=== PATIENT | female | born 1955 | race Caucasian/White ===

== ENCOUNTER 2019-07-04 12:49 | Inpatient (IN) ==
[2019-07-04] MEDS ORDERED: 0.9 % Sodium Chloride 1,000 ML IVC ONE (13:20)
--- NOTE | 2019-07-04 13:25 | Emergency Department Note ---
Disposition Clinical Impression: Fall, History of dementia, History of Parkinson's disease Disposition: Admitted As Inpatient Condition: Fair Forms: ED Satisfaction Letter Time of Disposition: 15:46 Fall HPI - General Chief Complaint: ED Fall Stated Complaint: fall Time Seen by Provider: 07/04/19 13:02 Source: patient, EMS Nursing Notes Reviewed: Yes Vital Signs Reviewed: Yes - History of Present Illness HPI Narrative: Patient is a 64-year-old female with significant history of advanced dementia and Parkinson's who presents with concerns of a fall in her bathroom today. Per EMS, the patient was found down in the bathtub. The mechanism of fall is unclear secondary to the patient's known medical history. She does state that she recalls this fall, however is unable to recall any details of this. She denies any symptoms following the fall such as headache, nausea, vomiting, neck pain, chest pain, abdominal pain, extremity pain. The remainder of the history is limited today to the patient's medical history. - Related Data Home Medications Medication Instructions Recorded Confirmed Cholecalciferol (Vitamin D3) 2,000 unit PO DAILY 01/04/18 01/06/18 [Vitamin D] Famotidine [Heartburn Prevention] 20 mg PO BID 01/04/18 01/06/18 Fluticasone Propionate [Flonase 1 spr NS DAILY 01/04/18 01/06/18 Allergy Relief] Meloxicam [Mobic] 15 mg PO DAILY 01/04/18 01/06/18 Sodium Chloride/Aloe Nasal Gel 1 appl NS 5XD PRN 01/04/18 01/06/18 [[place] Saline Nasal Gel] Trazodone HCl 150 mg PO HS 01/04/18 01/06/18 Vit A/C/E AC/Znox/Cupric Oxide 1 each PO DAILY 01/04/18 01/06/18 [Eye Vitamin-Minerals Tablet] Vit C/E/Zn/Coppr/Lutein/Zeaxan 1 tab PO DAILY 01/04/18 01/06/18 [Preservision Areds 2 Softgel] Allergies Allergy/AdvReac Type Severity Reaction Status Date / Time Donepezil Allergy Dizziness Verified 01/04/18 14:09 Review of Systems: REVIEW OF SYSTEMS: Constitutional: No F/C, No excessive fatigue Eye: No acute visual changes HENT: No sore throat, No rhinorrhea Resp: No SOB, No cough Cardio: No palpitations, No chest pain GI: No abdominal pain, No nausea, No vomiting, No constipation, No diarrhea, No melena or hematochezia : No dysuria, No hematuria Musculoskeletal: No new joint swelling, No back pain Neuro: No isolated numbness or weakness, No headaches Skin: No skin yellowing/jaundice, No pruritus Fall PMH - Past Medical History Medical history: Reports: non-contributory, arthritis, dementia, GERD Surgical history: Reports: cholecystectomy, hysterectomy Psychiatric history: Reports: anxiety, depression - Social History Smoking Status: Never smoker Alcohol use: Reports: none Drug use: Reports: none Physical Exam PHYSICAL EXAM: Constitutional: Stated Age HENT: NC/AT, Mucous membranes dry Eyes: No scleral icterus, No photophobia, EOMI Neck: No nuchal rigidity, Supple, Trachea midline Cardiac: Regular rate and rhythm, S1 and S2 normal, no S3, S4, no murmurs gallops or rubs Thorax & Lungs: Clear to auscultation bilaterally, no wheezes, crackles or rhonchi, No chest tenderness Abdomen: Soft, non-tender, non-distended, no rebound or guarding Skin: Warm, dry, pink, No mottling Extremities: No deformities Musculoskeletal: Normal tone Neurologic: Alert and oriented 1, sensory and motor strength fully intact in all extremities, no aphasia or dysarthria Psychiatric: appropriately oriented for baseline - General Limitations: no limitations General appearance: alert, in no apparent distress Course Vital Signs Temperature 98.2 F 07/04/19 12:56 Pulse Rate 77 07/04/19 12:56 Respiratory Rate 16 07/04/19 12:56 Blood Pressure 123/55 07/04/19 12:56 O2 Sat by Pulse Oximetry 96 07/04/19 12:56 Temperature 98.2 F 07/04/19 12:56 Pulse Rate 76 07/04/19 15:26 Respiratory Rate 16 07/04/19 15:26 Blood Pressure 109/87 07/04/19 15:26 O2 Sat by Pulse Oximetry 97 07/04/19 15:26 Oxygen Delivery Oxygen Delivery Room Air Fall - [facility] Narrative Medical decision making narrative: Patient is a 64-year-old female with history of advanced dementia and Par kinson's who presents for concerns of a fall. On physical exam, the patient was alert and oriented to person and place only which appears to be her baseline. Mucous membranes are dry, she otherwise had no facial trauma, no spinal tenderness, no other concerning features of trauma on exam. CT imaging of the head and cervical spine were unremarkable as well as labs. The significant other who is the power of insurance defense attorney did arrive to the emergency department and expressed to social work that he is concerned with her staying at home and does not feel he is able to adequately care for her and is requesting placement at this time. The patient will be hospitalized pending skilled placement. - Medical Records Medical records reviewed: Yes I reviewed the patient's medical records. - Lab Data Lab results reviewed: Yes I reviewed the patient's lab results. Result diagrams: 07/04/19 14:30 07/04/19 14:30 Lab Results 07/04/19 07/04/19 Range/Units 14:30 14:30 WBC 11.8 H (4.3-11.1) K/mcL RBC 4.60 (3.82-4.97) M/mcL Hgb 14.4 (11.5-15.4) g/dL Hct 42.6 (35.3-44.9) % MCV 92.6 (83.0-100.0) fL MCH 31.3 (28.0-33.3) pg MCHC 33.8 (31.6-35.5) g/dL RDW 13.0 (11.5-14.5) % Plt Count 244 (140-400) K/mcL MPV 9.2 L (9.4-12.4) fL Immature Gran % 0.3 (0-4) % Seg Neutrophils % 89.8 % Lymphocytes % 5.4 % Monocytes % 4.1 % Eosinophils % 0.1 % Basophils % 0.3 % Neutrophils # 10.6 H (1.6-8.9) K/mcL Lymphocytes # 0.6 (0.6-4.6) K/mcL Monocytes # 0.5 (0.0-1.3) K/mcL Eosinophils # 0.0 (0.0-0.6) K/mcL Basophils # 0.0 (0.0-0.2) K/mcL Sodium 140 (136-145) mEq/L Potassium 3.7 (3.5-5.1) mEq/L Chloride 103 (98-107) mEq/L Carbon Dioxide 28 (23-29) mEq/L BUN 19 (8-23) mg/dL Creatinine 0.97 (0.60-1.20) mg/dL Est GFR ( Amer) > 60 (> 60) Est GFR (Non-Af Amer) 58 L (> 60) BUN/Creatinine Ratio 20 (6-26) Glucose 123 H (70-105) mg/dL Calculated Osmolality 294 (280-300) Calcium 9.9 (8.6-10.3) mg/dL - Radiology Data Radiology results reviewed: Yes I reviewed the patient's radiology results. - EKG Data EKG attestation: Yes I reviewed and interpreted this EKG. EKG shows normal: sinus rhythm Rate: normal Rhythm: NSR [place]/QRS: normal
[2019-07-04 14:51] LABS: Basophils % 0.3 %; Eosinophils % 0.1 %; Hematocrit 42.6 % (35.3-44.9); Hemoglobin 14.4 g/dL (11.5-15.4); Immature Granulocytes % 0.3 % (0-4); Lymphocytes # 0.6 K/mcL (0.6-4.6); Lymphocytes % 5.4 %; Mean Corpuscular HGB Conc 33.8 g/dL (31.6-35.5); Mean Corpuscular Hemoglobin 31.3 pg (28.0-33.3); Mean Corpuscular Volume 92.6 fL (83.0-100.0); Mean Platelet Volume 9.2 fL (9.4-12.4); Monocytes # 0.5 K/mcL (0.0-1.3); Monocytes % 4.1 %; Neutrophils # 10.6 K/mcL (1.6-8.9); Platelet Count 244 K/mcL (140-400); Segmented Neutrophils % 89.8 %; White Blood Count 11.8 K/mcL (4.3-11.1)
[2019-07-04] MEDS ORDERED: *HR* LORazepam 2 MG/ML VIAL IVP ONE (15:05)
[2019-07-04 15:19] LABS: BUN/Creatinine Ratio 20 (6-26); Blood Urea Nitrogen 19 mg/dL (8-23); Calcium 9.9 mg/dL (8.6-10.3); Carbon Dioxide 28 mEq/L (23-29); Chloride 103 mEq/L (98-107); Glucose 123 mg/dL (70-105); Osmolality,Calculated 294 (280-300); Potassium 3.7 mEq/L (3.5-5.1); Sodium 140 mEq/L (136-145); eGFR For African Americans > 60 (> 60); eGFR For Non-African Americans 58 (> 60)
--- NOTE | 2019-07-04 16:16 | Internal Med History&Physical ---
Date of Encounter: 07/04/19 Time of Encounter: 16:13 Internal Medicine - H&P: HPI Chief complaint: Fall and injury Admitted From: Home Plans for Post Hospital Care: Transfer Custodial Facility History of present illness: Ms. Hernandez is a 64 year old female with past medical history of arthritis, gastroesophageal reflux disease, Parkinson disease, presents to the emergency department through EMS status post fall. There was a concern that she follow up to date in her bilateral. Per EMS team patient was found down in the bilateral me about that. However, the mechanism of the fall was unclear such as whether i t was a syncope versus mechanical fall. Patient has history of baseline dementia and Parkinson's disease and she does not recollect episode of her falling. Patient does remember that she fell earlier today however she did not really collect mechanism of how she fell. However, she reports that she did not hit her head. Patient reports of tremor and generalized weakness.Patient denied any headache, nausea, vomiting, chest pain, palpitation, tingling, and numbness. Upon presentation to the emergency department patient's vitals were stable and within normal limit. Patient had a CBC done which was within acceptable limits. Recent CMP was within acceptable limits as well. Vitamin B-12, folate, and TSH ordered which is pending at this time. Urine analysis pending at this time. Patient had a CT head was done in the emergency room which was without any acute intracranial process. Patient CT cervical spine was without any acute process. EKG was done which was normal sinus rhythm at 81 bpm. EKG had nonspecific T- wave abnormality which was compared with previous EKG in 2018 which was unchanged. Past Med Surg Social Fam HX - Past Medical History Medical history: non-contributory, arthritis, dementia, GERD Additional medical history: Parkinson's, Insomnia, Vit D insufficiency, Psoriasis Psychiatric history: anxiety, depression - Past Surgical History Surgical History: cholecystectomy, hysterectomy - Social History Smoking Status: Never smoker Smokeless Tobacco Status: No Alcohol use: none Drug use: none - Family History Father History Unknown: Yes Mother History Unknown: Yes Internal Medicine - H&P: Meds Cholecalciferol (Vitamin D3) [Vitamin D] 2,000 unit PO DAILY 01/04/18 [History] Famotidine [Heartburn Prevention] 20 mg PO BID 01/04/18 [History] Fluticasone Propionate [Flonase Allergy Relief] 1 spr NS DAILY 01/04/18 [History] Meloxicam [Mobic] 15 mg PO DAILY 01/04/18 [History] Sodium Chloride/Aloe Nasal Gel [[place] Saline Nasal Gel] 1 appl NS 5XD PRN 01/04/18 [History] Trazodone HCl 150 mg PO HS 01/04/18 [History] Vit A/C/E AC/Znox/Cupric Oxide [Eye Vitamin-Minerals Tablet] 1 each PO DAILY 01/04/18 [History] Vit C/E/Zn/Coppr/Lutein/Zeaxan [Preservision Areds 2 Softgel] 1 tab PO DAILY 01/04/18 [History] Allergy/AdvReac Type Severity Reaction Status Date / Time Donepezil Allergy Dizziness Verified 01/04/18 14:09 All Systems PM: A 10-system review of systems was performed and is negative for pertinent findings except as documented above in the HPI. - Constitutional Vitals: Temp Pulse Resp BP Pulse Ox 98.2 F 76 16 109/87 97 07/04/19 12:56 07/04/19 15:26 07/04/19 15:26 07/04/19 15:26 07/04/19 15:26 General appearance: Present: A&O X 2 Exam: General: A & O 2 , In acute distress HENNT: PERRLA. Head atraumatic and makes supple Eyes: No scleral icterus CVS S1 and S2 regular, no murmur RS: Clear to air entry bilaterally, no wheeze, no crackles Abdomen: Soft and nontender. Bowel sounds normal 4 Extremities: No cyanosis, clubbing, and edema Neurology: Cranial 2 through 12 normal. Motor strength 3-4/5 bilaterally. Sensation intact,. baseline tremor Skin: Dry, no rash noted Internal Med - H&P Results - Labs CBC & Chem 7: 07/04/19 14:30 07/04/19 14:30 Labs: Short CBC 07/04/19 Range/Units 14:30 WBC 11.8 H (4.3-11.1) K/mcL Hgb 14.4 (11.5-15.4) g/dL Hct 42.6 (35.3-44.9) % Plt Count 244 (140-400) K/mcL Neutrophils # 10.6 H (1.6-8.9) K/mcL BMP 07/04/19 14:30 Sodium 140 Potassium 3.7 Chloride 103 Carbon Dioxide 28 BUN 19 Creatinine 0.97 Glucose 123 H Calcium 9.9 - Impressions ITS Impressions Cervical Spine CT 07/04/19 13:20 IMPRESSION: No acute abnormality of the cervical spine. D/ / Allison Mccarty MD / Allison Mccarty MD Interpreting Provider: Allison Mccarty MD Head CT 07/04/19 13:20 IMPRESSION: No acute intracranial abnormality. D/ / Allison Mccarty MD / Allison Mccarty MD Interpreting Provider: Allison Mccarty MD - Assessment and Plan (1) Fall Current Visit: Yes Status: Acute Assessment and plan: Patient is a 64-year-old female with baseline history of ?Parkinson disease and dementia. Patient is currently not on any medication for Parkinson's disease. Patient was brought to the emergency department by EMS status post fall in her bilateral in the bite. Mechanism of fall is unknown at this time. Lab work in the ED was within the acceptable range. EKG was within normal limits. CT head and CT cervical spine was negative. - We will admit patient as inpatient. - We will get echocardiogram - Fall precautions - Telemetry - TSH, folate, and vitamin B12 ordered - Neurology on consult will appreciate neurology input. - We will consult PT/OT and possible placement on senior care facility on discharge. Qualifiers: Encounter type: initial encounter Qualified Code(s): W19.XXXA - Unspecified fall, initial encounter (2) History of Parkinson's disease Current Visit: Yes Status: Acute Assessment and plan: Patient reports that she has a history of Parkinson's disease. However, on medication review recent is not on any medication for Parkinson's disease. CT head was within normal limit. Patient has a baseline tremor on exam. We will place neurology on consult. (3) History of dementia Current Visit: Yes Status: Acute Assessment and plan: Patient is currently not on any medication for dementia. Patient has allergy to Aricept. We will place neurological consult. We will continue to monitor. (4) GERD (gastroesophageal reflux disease) Current Visit: Yes Status: Acute Assessment and plan: Continue home Pepcid Qualifiers: Esophagitis presence: esophagitis presence not specified Qualified Code(s): K21.9 - Gastro-esophageal reflux disease without esophagitis (5) DVT prophylaxis Current Visit: Yes Status: Acute Assessment and plan: Subcutaneous heparin - Time Spent With Patient Total time spent is greater than 50% in coordination of care (as documented) at patient's floor/unit and/or counseling patient: 25 - 35 minutes
[2019-07-04] MEDS ORDERED: *HR* Promethazine 25 MG/ML VIAL IVP PRN (16:45)
[2019-07-04] MEDS ORDERED: Ondansetron 4 MG/2 ML VIAL IVP PRN (16:45)
[2019-07-04] MEDS ORDERED: Naloxone 0.4 MG/ML INJ IVP PRN (16:45)
[2019-07-04 17:30] LABS: Thyroid Stimulating Hormone 1.003 mcIU/mL (0.340-5.600)
[2019-07-04 18:17] LABS: Folate > 22.3 ng/mL (3.0-16.0); Vitamin B12 837 pg/mL (250-1100)
[2019-07-04] MEDS: 0.9 % Sodium Chloride 1,000 ML IVC SCH (21:59)
[2019-07-04] MEDS: Famotidine 20 MG TABLET PO SCH (22:00)
[2019-07-04] MEDS: *HR* Heparin 5,000 UNIT/ML VIAL SQ SCH (22:00)
[2019-07-04] MEDS: traZODone 50 MG TABLET PO SCH (22:00)
[2019-07-05 03:37] LABS: Basophils % 0.5 %; Eosinophils # 0.1 K/mcL (0.0-0.6); Eosinophils % 0.8 %; Hematocrit 36.9 % (35.3-44.9); Immature Granulocytes % 0.3 % (0-4); Lymphocytes # 1.8 K/mcL (0.6-4.6); Lymphocytes % 23.3 %; Mean Corpuscular HGB Conc 33.6 g/dL (31.6-35.5); Mean Corpuscular Volume 95.3 fL (83.0-100.0); Mean Platelet Volume 9.3 fL (9.4-12.4); Monocytes # 0.4 K/mcL (0.0-1.3); Monocytes % 5.7 %; Neutrophils # 5.4 K/mcL (1.6-8.9); Platelet Count 228 K/mcL (140-400); Red Blood Count 3.87 M/mcL (3.82-4.97); Red Cell Distribution Width 13.2 % (11.5-14.5); Segmented Neutrophils % 69.4 %; White Blood Count 7.7 K/mcL (4.3-11.1)
[2019-07-05 03:51] LABS: Hemoglobin 12.4 g/dL (11.5-15.4)
[2019-07-05 03:54] LABS: BUN/Creatinine Ratio 21 (6-26); Blood Urea Nitrogen 15 mg/dL (8-23); Carbon Dioxide 24 mEq/L (23-29); Chloride 109 mEq/L (98-107); Potassium 3.2 mEq/L (3.5-5.1); Sodium 140 mEq/L (136-145); eGFR For African Americans > 60 (> 60); eGFR For Non-African Americans > 60 (> 60)
[2019-07-05 03:55] LABS: Calcium 8.7 mg/dL (8.6-10.3); Glucose 99 mg/dL (70-105); Osmolality,Calculated 291 (280-300)
[2019-07-05] MEDS: *HR* Heparin 5,000 UNIT/ML VIAL SQ SCH ×2 (05:53→17:59)
[2019-07-05] MEDS: Fluticasone Propionate Nasal 50 MCG/SPRAY BOTTLE NS SCH (08:33)
[2019-07-05] MEDS: Famotidine 20 MG TABLET PO SCH ×2 (08:33→20:40)
[2019-07-05] MEDS: 0.9 % Sodium Chloride 1,000 ML IVC SCH (08:33)
--- NOTE | 2019-07-05 11:01 | Internal Med Progress Note ---
Hospitalist Progress Note - Encounter Date of Encounter: 07/05/19 Time of Encounter: 10:59 - Subjective Interval History: Pt was seen and examined at bedside. Pt is alert and follows command. Patient denies any acute issues and concerns. - Exam Vitals: Temp Pulse Resp BP Pulse Ox 98.0 F 59 14 138/73 95 07/05/19 07:32 07/05/19 07:32 07/05/19 07:32 07/05/19 07:32 07/05/19 07:32 Exam: General: A & O 2 , In acute distress HENNT: PERRLA. Head atraumatic and makes supple Eyes: No scleral icterus CVS S1 and S2 regular, no murmur RS: Clear to air entry bilaterally, no wheeze, no crackles Abdomen: Soft and nontender. Bowel sounds normal 4 Extremities: No cyanosis, clubbing, and edema Neurology: Cranial II-XII normal. Motor strength 3-4/5 bilaterally. Sensation intact,. baseline tremor - Assessment and Plan (1) Fall Current Visit: Yes Status: Acute Assessment and Plan: Patient is a 64-year-old female with baseline history of Parkinson disease and dementia. Hospitalized due to fall. CT head was negative. Neurology consult placed. Patient's TSH, vitamin B12, folic are within normal limit. We will get echocardiogram today. We will get physical therapy and occupational therapy on admission today. Most likely will be discharged to assisted facility. (2) History of Parkinson's disease Current Visit: Yes Status: Acute Assessment and Plan: Since home medication for Parkinson's disease resume today.. (3) History of dementia Current Visit: Yes Status: Acute Assessment and Plan: Home medications resumed today.. (4) GERD (gastroesophageal reflux disease) Current Visit: Yes Status: Acute Assessment and Plan: Continue home Pepcid (5) DVT prophylaxis Current Visit: Yes Status: Acute Assessment and Plan: Subcutaneous heparin - Time Spent with Patient Total time spent is greater than 50% in coordination of care (as documented) at patient's floor/unit and/or counseling patient: 25 - 35 minutes Plan of Care Discussed with: patient Internal Medicine: Result - Labs CBC & Chem 7: 07/05/19 03:02 07/05/19 03:02 Labs: Short CBC 07/04/19 07/05/19 Range/Units 14:30 03:02 WBC 11.8 H 7.7 (4.3-11.1) K/mcL Hgb 14.4 12.4 D (11.5-15.4) g/dL Hct 42.6 36.9 (35.3-44.9) % Plt Count 244 228 (140-400) K/mcL Neutrophils # 10.6 H 5.4 (1.6-8.9) K/mcL BMP 07/04/19 07/05/19 14:30 03:02 Sodium 140 140 Potassium 3.7 3.2 L Chloride 103 109 H Carbon Dioxide 28 24 BUN 19 15 Creatinine 0.97 0.70 Glucose 123 H 99 Calcium 9.9 8.7 - Impressions Impressions Cervical Spine CT 07/04/19 13:20 IMPRESSION: No acute abnormality of the cervical spine. D/ / Allison Mccarty MD / Allison Mccarty MD Interpreting Provider: Allison Mccarty MD Head CT 07/04/19 13:20 IMPRESSION: No acute intracranial abnormality. D/ / Allison Mccarty MD / Allison Mccarty MD Interpreting Provider: Allison Mccarty MD Consult Discharge Plan - Plan Referrals: Alva Mahoney CNP [Advanced Practice Nurse] - (1) Fall Qualifiers: Encounter type: initial encounter Qualified Code(s): W19.XXXA - Unspecified fall, initial encounter (4) GERD (gastroesophageal reflux disease) Qualifiers: Esophagitis presence: esophagitis presence not specified Qualified Code(s): K21.9 - Gastro-esophageal reflux disease without esophagitis
--- NOTE | 2019-07-05 11:34 | Neurology - Consult Note ---
<Stephen Flores J - Last Filed: 07/05/19 16:37> Date of Encounter: 07/05/19 Time of Encounter: 11:32 Assessment and Plan (1) Fall Current Visit: Yes Status: Acute History of Parkinson's disease Neurology consulted for further recommendations regarding Parkinson's Patient presents to [facility] S/P fall without syncope/loss of consciousness or head trauma She reports that she was sitting on the edge of her chair and fell out and then was unable to stand unassisted Echocardiogram completed and pending At time of my assessment she is at her baseline with delayed cognition, difficulty with word finding, bradykinesia, resting tremor, rigidity in all 4 extremities without any other focal or lateralizing findings concerning for an acute central neurological event Her fall was most likely 2/2 to her Parkinsonism We will increase the frequency of her dose of Sinemet from 25/100 TID to 25/100 QID She is known to [facility] and has been established with Dr. Montero. Last visit was 03/2019 She has a f/u scheduled in two weeks with Dr. Montero; Will discuss how she has tolerated increase in frequency or sinemet at that time Qualifiers: Encounter type: initial encounter Qualified Code(s): W19.XXXA - Unspecified fall, initial encounter History of Present Illness Chief complaint: FALLS HPI: Ms. Hernandez is a 64 year old female with a PMH of Parkinson's arthritis and dementia who presented to [facility] ED s/p fall at home. She reports that she was sitting on the edge of her chair and fell off and was unable to get herself off of the floor. She denies any head/neck trauma or loss of consciousness but notes that d/t weakness and muscle rigidity with her Parkinson's she was unable to stand. She denies any neuro sx including facial droop, visual disturbances, focal or lateralizing weakness or sensory loss, she denies any chest pain, palpitations or shortness of breath. She reports that she follows with Dr. Montero for Parkinsons and that she has an upcoming f/u in late June. B-12, folate and TSH were within range. CT head and C spine unremarkable. At the time of my assessment she was resting in bed and weeping. She notes distress in regards to her decline in independence. She denies any worsening of symptoms since admission but does admit that she is still weaker than baseline. Past Med Surg Social Fam HX - Past Medical History Medical history: non-contributory, arthritis, dementia, GERD Additional medical history: Parkinson's, Insomnia, Vit D insufficiency, Psoriasis Psychiatric history: anxiety, depression - Past Surgical History Surgical History: cholecystectomy, hysterectomy - Social History Smoking Status: Never smoker Smokeless Tobacco Status: No Alcohol use: none Drug use: none Medications and Allergies Carbidopa/Levodopa [Carbidopa-Levodopa 25-100 Tab] 1 tab PO TID 07/04/19 [H istory] Cholecalciferol (D-3) [Vitamin D] 2,000 unit PO DAILY 07/04/19 [History] Escitalopram [Lexapro] 10 mg PO DAILY 07/04/19 [History] Famotidine [Pepcid] 20 mg PO BID 07/04/19 [History] Memantine HCl 10 mg PO BID 07/04/19 [History] Multivitamin [Daily Multiple Vitamin] 1 tab PO DAILY 07/04/19 [History] Oxybutynin [Ditropan] 5 mg PO BID 07/04/19 [History] Trazodone HCl 150 mg PO HS PRN 07/04/19 [History] Vit C/E/Zn/Coppr/Lutein/Zeaxan [Preservision Areds 2 Softgel] 1 cap PO DAILY 07/04/19 [History] Allergy/AdvReac Type Severity Reaction Status Date / Time Donepezil Allergy Dizziness Verified 01/04/18 14:09 All Systems: The remainder of the systems were reviewed and are negative Review of Systems: REVIEW OF SYSTEMS GENERAL: Negative for any nausea, vomiting, fevers, chills, or weight loss, fatigue NEUROLOGIC: Negative for any blurry vision, blind spots, double vision, facial asymmetry, dysphagia, dysarthria, hemiparesis, hemisensory deficits, vertigo, ataxia, seizures, paralysis, tingling, numbness, unilateral weakness or numbness/tingling Positive falls, bilateral leg weakness, limb rigidity secondary Parkinson's HEENT: Negative for any head trauma, neck trauma, neck stiffness CARDIAC: Negative for any chest pain, dyspnea, peripheral edema. PULMONARY: Negative for any shortness of breath, wheezing GASTROINTESTINAL: Negative for any abdominal pain, nausea, vomiting, bright red blood per rectum, melena. GENITOURINARY: Negative for any dysuria, hematuria, incontinence. ENDOCRINE: Thyroid trouble, heat/cold intolerance, excessive sweating, MUSCULOSKELETAL: Positive chronic limb rigidity, decreased activity tolerance secondary to Parkinson's The remainder of the review of systems reviewed and found to be negative Physical Examination - Vital Signs Vital Signs: Initial Vital Signs Temp Pulse Resp BP Pulse Ox 98.2 F 77 16 123/55 96 07/04/19 12:56 07/04/19 12:56 07/04/19 12:56 07/04/19 12:56 07/04/19 12:56 - Exam Exam: Examination: General Examination: *CONSTITUTIONAL: Alert and oriented x3, anxious and weeping *GENERAL APPEARANCE OF PATIENT generally ill appearing obese elderly female *EYES: pupils equal, round, reactive to light and accommodation, conjunctiva clear without masses or ulcerations, fundi normal. *CARDIOVASCULAR: no peripheral edema, distal temperature normal, dorsalis pedis pulses normal. Refer to vital signs * MUSCULOSKELETAL: *GAIT AND STATION:: Deferred *ASSESSMENT OF MUSCLE STRENGTH IN THE UPPER AND LOWER EXTREMITIES bilateral deltoid, bicep, tricep, environmental educator strength, hip flexors ,anterior tibialis, dorsoflexion of the foot 5/5 *MUSCLE TONE IN THE UPPER AND LOWER EXTREMITIES patient has a unilateral resting tremor in the right hand and mild no known head tremor as well as masked facies. Cogwheeling noted bilaterally in the upper extremities she is somewhat rigid and bilateral lower extremitIES WELL Neurological: *ORIENTATION to person, situation, time and place *LANGUAGE AND FUNCTION no significant aphasia or dysarthia was noted. *ATTENTION AND CONCENTRATION are normal *LANGUAGE FUNCTION patient has been having difficulty with language function with delayed and interrupted speech pattern as well as difficulty with word finding *FUND OF KNOWLEDGE aware of current events, past history, vocabulary *MENTAL attention span and concentration abnormal and she requires frequent reorientation *CN II optic fundi were normal, no papilledema noted. *CN III,IV, PERRLA extraocular eye movements were full, no nystagmus and no ptosis noted. *CN V shows normal sensation and jaw opens symmetrically. *CN VII shows normal facial movement symmetrically, upper and lower bilat erally. *CN VIII shows no significant hearing loss on exam *CN IX-X palate elevated symmetrically *CN XI normal strength in the sternocleidomastoid muscles, symmetrical shoulder shrugging. *CN XII tongue protruded in the midline, with normal strength and movement. *SENSORY EXAMINATION light touch intact *REFLEXES: deep tendon reflexes were normal and symmetrical , grade 1/4 diffusely, no pathological reflexes were noted. *CEREBELLAR TESTING dysmetria in b/l finger to nose and [id number] *PAIN LEVEL 0/10 Results - Laboratory Findings CBC and BMP: 07/05/19 03:02 07/05/19 03:02 Abnormal lab findings: Abnormal lab results WBC 11.8 K/mcL (4.3-11.1) H 07/04/19 14:30 MPV 9.3 fL (9.4-12.4) L 07/05/19 03:02 Neutrophils # 10.6 K/mcL (1.6-8.9) H 07/04/19 14:30 Potassium 3.2 mEq/L (3.5-5.1) L 07/05/19 03:02 Chloride 109 mEq/L (98-107) H 07/05/19 03:02 Est GFR (Non-Af Amer) 58 (> 60) L 07/04/19 14:30 Glucose 123 mg/dL (70-105) H 07/04/19 14:30 Folate > 22.3 ng/mL (3.0-16.0) H 07/04/19 16:30 - Diagnostic Findings Additional findings: CT/CT head/brain wo con IMPRESSION: No acute intracranial abnormality. Consult Discharge Plan - Plan Referrals: Alva Mahoney, SCOOP DRIVER [Advanced Practice Nurse] - <Jarett Canela - Last Filed: 07/05/19 18:35> Date of Encounter: 07/05/19 Assessment and Plan (1) Fall Current Visit: Yes Status: Acute I have personally performed a zrls-[id number] assessment of the patient and have reviewed the PA/GAMING CAGE WORKER note. My impressions are as follows: Case was discussed with Stephen. I agree with his assessment as stated above. Individuals with Parkinson's disease generally experience some element of postural instability which predisposes them to falls. She is very anxious which is something that ultimately need to be addressed. It could possibly be worsening her tremulousn ess. In regard may increase her Sinemet to 4 times a day dosing. Dementia may also be contributing to her anxious mood. I will have her follow up with Dr. Montero for further recommendations regarding management of Parkinson's disease after discharge. Qualifiers: Encounter type: initial encounter Qualified Code(s): W19.XXXA - Unspecified fall, initial encounter History of Present Illness HPI: Chart was reviewed, patient was seen and examined independently. Case was discussed with the SCOOP DRIVER. I agree with his interpretation of the history of present illness as stated above. Patient is known to Dr. Montero for Parkinson's disease. Patient at this time seems to be very anxious. She is awake and wilner rt, however seems distraught. She stutters profusely. She is able to follow commands however. She is not a good historian. All Systems: The remainder of the systems were reviewed and are negative Review of Systems: The balance of the systems review is negative. Physical Examination - Vital Signs Vital Signs: Initial Vital Signs Temp Pulse Resp BP Pulse Ox 98.2 F 77 16 123/55 96 07/04/19 12:56 07/04/19 12:56 07/04/19 12:56 07/04/19 12:56 07/04/19 12:56 - Exam Exam: I shivI agree with the neurologic examination as documented above.e personally performed a [id number] assessment of the patient and have reviewed the PA/GAMING CAGE WORKER note. My impressions are as follows: Results - Laboratory Findings CBC and BMP: 07/05/19 03:02 07/05/19 03:02 Abnormal lab findings: Abnormal lab results WBC 11.8 K/mcL (4.3-11.1) H 07/04/19 14:30 MPV 9.3 fL (9.4-12.4) L 07/05/19 03:02 Neutrophils # 10.6 K/mcL (1.6-8.9) H 07/04/19 14:30 Potassium 3.2 mEq/L (3.5-5.1) L 07/05/19 03:02 Chloride 109 mEq/L (98-107) H 07/05/19 03:02 Est GFR (Non-Af Amer) 58 (> 60) L 07/04/19 14:30 Glucose 123 mg/dL (70-105) H 07/04/19 14:30 Folate > 22.3 ng/mL (3.0-16.0) H 07/04/19 16:30
[2019-07-05] MEDS ORDERED: Carbidopa/Levodopa 25/100 TABLET PO SCH (15:00)
--- NOTE | 2019-07-05 17:41 | Electrocardiograph Report ---
[place] [id number] Test Date: 2019-07-04 Pat Name: Cadence Hernandez Department: [id number] Room: 3A12 Gender: F Coding Consultant: : [id number] Requested By: [id number] Order Number: [id number] Reading MD: Megan Reeves Measurements Intervals [place] Rate: 81 P: 51 NE: 179 QRS: 4 QRSD: 63 T: 177 QT: 459 QTc: 533 Interpretive Statements Sinus rhythm Low voltage, precordial leads Baseline artifact Prolonged QT interval Electronically Signed On 07-05-2019 17:39:48 EDT by Megan Reeves
[2019-07-05] MEDS: Carbidopa/Levodopa 25/100 TABLET PO SCH ×2 (17:59→20:40)
[2019-07-05 18:26] LABS: Bilirubin,Urine Negative (Negative); Blood,Urine Negative (Negative); Clarity,Urine Clear (Clear); Color,Urine Yellow (Yellow); Glucose,Urine (UA) Normal (Normal); Ketones,Urine Trace mg/dL (Negative); Leukocyte Esterase,Urine Small (Negative); Nitrite,Urine Negative (Negative); Protein,Urine Negative (Neg-Trace); Specific Gravity,Urine 1.013 (1.010-1.025); Urobilinogen,Urine Normal (Normal)
[2019-07-05 18:29] LABS: Bacteria,Urine None Seen per hpf (None-Few); Hyaline Casts,Urine None Seen per lpf (None-Few); RBC,Urine 0-3 per hpf (0-3); Squamous Epithelial Cell,Urine Moderate per lpf (None-Few)
[2019-07-05] MEDS: traZODone 50 MG TABLET PO SCH (20:39)
[2019-07-06] MEDS: Nystatin POWDER 30 GM BOTTLE TP SCH ×3 (01:24→21:58)
[2019-07-06 02:51] LABS: BUN/Creatinine Ratio 12 (6-26); Blood Urea Nitrogen 9 mg/dL (8-23); Calcium 8.4 mg/dL (8.6-10.3); Carbon Dioxide 22 mEq/L (23-29); Chloride 110 mEq/L (98-107); Glucose 97 mg/dL (70-105); Osmolality,Calculated 291 (280-300); Potassium 3.1 mEq/L (3.5-5.1); Sodium 141 mEq/L (136-145); eGFR For African Americans > 60 (> 60); eGFR For Non-African Americans > 60 (> 60)
[2019-07-06] MEDS: *HR* Heparin 5,000 UNIT/ML VIAL SQ SCH ×2 (05:30→16:36)
[2019-07-06] MEDS: Carbidopa/Levodopa 25/100 TABLET PO SCH ×4 (10:03→21:58)
[2019-07-06] MEDS: Famotidine 20 MG TABLET PO SCH ×2 (10:03→21:58)
[2019-07-06] MEDS: Fluticasone Propionate Nasal 50 MCG/SPRAY BOTTLE NS SCH (10:04)
--- NOTE | 2019-07-06 10:12 | Internal Med Progress Note ---
Hospitalist Progress Note - Encounter Date of Encounter: 07/06/19 Time of Encounter: 10:09 - Subjective Interval History: Pt was seen and examined at bedside this morning. Patient still complaining of sluggishness and weakness. She denied any fever, chills, nausea, vomiting, abdominal pain, and diarrhea. She denies any chest pain, and palpitation. - Exam Vitals: Temp Pulse Resp BP Pulse Ox 98.2 F 80 16 136/83 96 07/06/19 06:21 07/06/19 06:21 07/06/19 06:21 07/06/19 06:21 07/06/19 06:21 Exam: General: A & O 2 , In acute distress HENNT: PERRLA. Head atraumatic and makes supple Eyes: No scleral icterus CVS S1 and S2 regular, no murmur RS: Clear to air entry bilaterally, no wheeze, no crackles Abdomen: Soft and nontender. Bowel sounds normal 4 Extremities: No cyanosis, clubbing, and edema Neurology: Cranial II-XII normal. Motor strength 3-4/5 bilaterally. Sensation intact,. baseline tremor - Assessment and Plan (1) Parkinson disease Current Visit: Yes Status: Acute Assessment and Plan: Pt presents to the emergency department with fall. Patient could not be collected the mechanism of fall at the presentation. Patient has a history of Parkinson's disease which is not well controlled and resulting in frequent falls and weakness. On exam patient has a sluggishness and bradykinesia. Patient also had a baseline tremor as well. Patient is currently on Sinemet. Neurology was consulted. Neurologic increase daily frequency of Sinmet same dosage. His medication regimen adjusted. Physical therapy and occupational therapy consulted which recommended alf facility placement. We will continue to monitor. (2) Fall Current Visit: Yes Status: Acute Assessment and Plan: Likely due to uncontrolled Parkinson's disease. CT head at the presentation was negative. Neurology consulted and patient's Parkinson's disease medications were adjusted. PT and OT on consult. (3) History of dementia Current Visit: Yes Status: Acute Assessment and Plan: Continue memantine. (4) GERD (gastroesophageal reflux disease) Current Visit: Yes Status: Acute Assessment and Plan: Continue home Pepcid (5) DVT prophylaxis Current Visit: Yes Status: Acute Assessment and Plan: Subcutaneous heparin - Time Spent with Patient Total time spent is greater than 50% in coordination of care (as documented) at patient's floor/unit and/or counseling patient: 25 - 35 minutes Plan of Care Discussed with: patient Internal Medicine: Result - Labs CBC & Chem 7: 07/05/19 03:02 07/06/19 02:19 Labs: BMP 07/06/19 02:19 Sodium 141 Potassium 3.1 L Chloride 110 H Carbon Dioxide 22 L BUN 9 Creatinine 0.77 Glucose 97 Calcium 8.4 L Urine 07/05/19 Range/Units 18:00 Urine Color Yellow (Yellow) Urine Clarity Clear (Clear) Urine pH 7.0 (5.0-8.0) pH Units Ur Specific [place] 1.013 (1.010-1.025) Urine Protein Negative (Neg-Trace) mg/dL Urine Glucose (UA) Normal (Normal) mg/dL - Impressions Impressions Echocardiogram 07/04/19 16:54 Impressions: LVEF 60-65%. Normal LV chamber size, wall thickness and function. Normal left ventricular diastolic function. Normal right ventricular structure and function. No evidence of pulmonary hypertension. No significant valvular dysfunction. Left Ventricular Wall Motion: Rest Echo Findings All wall segments showed normal motion. Findings: Study Quality * Technically sub-optimal due to poor echocardiographic windows. ECG Findings * Normal sinus rhythm. Left Ventricle * LVEF 60-65%. * Normal LV chamber size, wall thickness and function. * Normal left ventricular diastolic function. Right Ventricle * Normal right ventricular structure and function. Left Atrium * Normal left atrial size. Right Atrium * Normal right atrial size. Interatrial Septum * Interatrial septum not well evaluated. Aortic Valve * Trileaflet aortic valve. * No aortic regurgitation. * No aortic stenosis. Mitral Valve * Normal mitral valve structure and function. * No mitral stenosis. * No mitral regurgitation. Tricuspid Valve * Normal tricuspid valve structure and function. * Trace tricuspid regurgitation. * No evidence of pulmonary hypertension. Pulmonic Valve * Normal pulmonic valve structure and function. * No pulmonic regurgitation. Aorta * Normally sized aortic root. Pericardium * The pericardium appears normal. IVC * The IVC is not well evaluated. Pulmonary Artery * Normal visualized portions of the main pulmonary artery. Consult Discharge Plan - Plan Referrals: Alva Mahoney, LICENSED LOAN OFFICER ASSISTANT [Advanced Practice Nurse] - __ (2) Fall Qualifiers: Encounter type: initial encounter Qualified Code(s): W19.XXXA - Unspecified fall, initial encounter (4) GERD (gastroesophageal reflux disease) Qualifiers: Esophagitis presence: esophagitis presence not specified Qualified Code(s): K21.9 - Gastro-esophageal reflux disease without esophagitis
--- NOTE | 2019-07-06 10:44 | Neurology Progress Note ---
<Stephen Flores - Last Filed: 07/06/19 10:41> Date of Encounter: 07/06/19 Time of Encounter: 10:41 Assessment and Plan (1) Fall Current Visit: Yes Status: Acute Seen in follow-up S/P fall Follows most likely 2/2 postural instability with Parkinson's Patient noting increasing weakness and rigidity as well as balance difficulty over the last couple of weeks Sinemet increased to 4 times a day She reports feeling much better today however, she is still somewhat anxious. This may be due to dementia. She has follow-up scheduled for Dr. Montero in 2 weeks. During the follow-up visit she can discuss medication management Recommending PT/OT and social work msw consultation; the patient has inquired about assisted living to provide her with a better quality of life and assistance as well as provide transportation for close follow-ups for prog ressing Parkinson's Neurology will sign off at this time please call should any urgent needs arise. Thank you for consulting [facility] Qualifiers: Encounter type: initial encounter Qualified Code(s): W19.XXXA - Unspecified fall, initial encounter Subjective Principal diagnosis: Falls with Parkinson's Interval history: The patient is seen and examined at bedside today. She is sitting up in the chair and notes that she feels much better today than comparison to admission. Clinically she is stable without any acute neurological deficits developing overnight. I discussed increasing her Sinemet to 25/100 4 times a day from the 3 times a day dosing she was previously taken. I reminded her of her follow-up with Dr. Montero in 2 weeks. The patient denies any further questions. Objective - Constitutional Vitals: Temp Pulse Resp BP Pulse Ox 98.2 F 80 16 136/83 96 07/06/19 06:21 07/06/19 06:21 07/06/19 06:21 07/06/19 06:21 07/06/19 06:21 Exam: Examination: General Examination: *CONSTITUTIONAL: Alert and oriented x3, anxious and weeping *GENERAL APPEARANCE OF PATIENT generally ill appearing obese elderly female *EYES: pupils equal, round, reactive to light and accommodation, conjunctiva clear without masses or ulcerations, fundi normal. *CARDIOVASCULAR: no peripheral edema, distal temperature normal, dorsalis pedis pulses normal. Refer to vital signs * MUSCULOSKELETAL: *GAIT AND STATION:: Bradykinesia and shuffled gait *ASSESSMENT OF MUSCLE STRENGTH IN THE UPPER AND LOWER EXTREMITIES bilateral deltoid, bicep, tricep, short order fry cook strength, hip flexors ,anterior tibialis, dorsoflexion of the foot 5/5 *MUSCLE TONE IN THE UPPER AND LOWER EXTREMITIES patient has a unilateral resting tremor in the right hand and mild no known head tremor as well as masked facies. Cogwheeling noted bilaterally in the upper extremities she is somewhat rigid and bilateral lower extremitIES WELL Neurological: *ORIENTATION to person, situation, time and place *LANGUAGE AND FUNCTION no significant aphasia or dysarthia was noted. *ATTENTION AND CONCENTRATION are normal *LANGUAGE FUNCTION patient has been having difficulty with language function with delayed and interrupted speech pattern as well as difficulty with word finding *FUND OF KNOWLEDGE aware of current events, past history, vocabulary *MENTAL attention span and concentration abnormal and she requires frequent reorientation *CN II optic fundi were normal, no papilledema noted. *CN III,IV, PERRLA extraocular eye movements were full, no nystagmus and no ptosis noted. *CN V shows normal sensation and jaw opens symmetrically. *CN VII shows normal facial movement symmetrically, upper and lower bilaterally. *CN VIII shows no significant hearing loss on exam *CN IX-X palate elevated symmetrically *CN XI normal strength in the sternocleidomastoid muscles, symmetrical shoulder shrugging. *CN XII tongue protruded in the midline, with normal strength and movement. *SENSORY EXAMINATION light touch intact *REFLEXES: deep tendon reflexes were normal and symmetrical , grade 1/4 diffusely, no pathological reflexes were noted. *CEREBELLAR TESTING dysmetria in b/l finger to nose and [id number] *PAIN LEVEL 0/10 Results - Laboratory Findings CBC and BMP: 07/05/19 03:02 07/06/19 02:19 Abnormal lab findings: Abnormal lab results WBC 11.8 K/mcL (4.3-11.1) H 07/04/19 14:30 MPV 9.3 fL (9.4-12.4) L 07/05/19 03:02 Neutrophils # 10.6 K/mcL (1.6-8.9) H 07/04/19 14:30 Potassium 3.1 mEq/L (3.5-5.1) L 07/06/19 02:19 Chloride 110 mEq/L (98-107) H 07/06/19 02:19 Carbon Dioxide 22 mEq/L (23-29) L 07/06/19 02:19 Est GFR (Non-Af Amer) 58 (> 60) L 07/04/19 14:30 Glucose 123 mg/dL (70-105) H 07/04/19 14:30 Calcium 8.4 mg/dL (8.6-10.3) L 07/06/19 02:19 Folate > 22.3 ng/mL (3.0-16.0) H 07/04/19 16:30 Urine Ketones Trace mg/dL (Negative) H 07/05/19 18:00 Ur Leukocyte Esterase Small (Negative) H 07/05/19 18:00 Urine Microscopic WBC 5-15 per hpf (0-3) H 07/05/19 18:00 Ur Squamous Epith Cells Moderate per lpf (None-Few) H 07/05/19 18:00 Ur Culture Indicated? YES (NO) A 07/05/19 18:00 Consult Discharge Plan - Plan Referrals: Alva Mahoney CNP [Advanced Practice Nurse] - <Jarett Canela - Last Filed: 07/06/19 15:50> Date of Encounter: 07/06/19 Assessment and Plan (1) Fall Current Visit: Yes Status: Acute I have personally performed a [id number] assessment of the patient and have reviewed the PA/CAD DETAILER note. My impressions are as follows: Chart was reviewed, patient was seen and examined independently. Case was discussed with the CRYSTAL GROWING TECHNICIAN. I agree with his assessment and plan as stated above. Patient seems improved today. We will recommend that she continue on Sinemet 25/100 4 times a day dosing and follow-up with Dr. Kylah tong office and another 2 weeks. We will reevaluate your request. Qualifiers: Encounter type: initial encounter Qualified Code(s): W19.XXXA - Unspecified fall, initial encounter Subjective Interval history: Chart was reviewed, patient was seen and examined. Case was discussed with the CRYSTAL GROWING TECHNICIAN. I agree with his assessment of the subjective history as documented above. Objective - Constitutional Vitals: Temp Pulse Resp BP Pulse Ox 98.4 F 58 18 135/69 98 07/06/19 14:59 07/06/19 14:59 07/06/19 14:59 07/06/19 14:59 07/06/19 14:59 Exam: I have personally performed a [id number]-td-lksh assessment of the patient and have reviewed the PA/CAD DETAILER note. My impressions are as follows: I agree with the neurologic examination is documented above. Results - Laboratory Findings CBC and BMP: 07/05/19 03:02 07/06/19 02:19 Abnormal lab findings: Abnormal lab results WBC 11.8 K/mcL (4.3-11.1) H 07/04/19 14:30 MPV 9.3 fL (9.4-12.4) L 07/05/19 03:02 Neutrophils # 10.6 K/mcL (1.6-8.9) H 07/04/19 14:30 Potassium 3.1 mEq/L (3.5-5.1) L 07/06/19 02:19 Chloride 110 mEq/L (98-107) H 07/06/19 02:19 Carbon Dioxide 22 mEq/L (23-29) L 07/06/19 02:19 Est GFR (Non-Af Amer) 58 (> 60) L 07/04/19 14:30 Glucose 123 mg/dL (70-105) H 07/04/19 14:30 Calcium 8.4 mg/dL (8.6-10.3) L 07/06/19 02:19 Folate > 22.3 ng/mL (3.0-16.0) H 07/04/19 16:30 Urine Ketones Trace mg/dL (Negative) H 07/05/19 18:00 Ur Leukocyte Esterase Small (Negative) H 07/05/19 18:00 Urine Microscopic WBC 5-15 per hpf (0-3) H 07/05/19 18:00 Ur Squamous Epith Cells Moderate per lpf (None-Few) H 07/05/19 18:00 Ur Culture Indicated? YES (NO) A 07/05/19 18:00
[2019-07-06 14:31] LABS: Adenovirus F 40/41 PCR Not detected (Not detect); Astrovirus PCR Not detected (Not detect); C.difficile Toxin A/B Gene PCR Not detected (Not detect); Campylobacter by PCR Not detected (Not detect); Cryptosporidium by PCR Not detected (Not detect); Cyclospora cayetanensis PCR Not detected (Not detect); E. coli O157 by PCR Not detected (Not detect); Entamoeba histolytica PCR Not detected (Not detect); Enteroaggregative E.coli(EAEC) Not detected (Not detect); Enteropathogenic E.coli(EPEC) Not detected (Not detect); Enterotoxigenic E.coli (ETEC) Not detected (Not detect); Giardia lamblia PCR Not detected (Not detect); Norovirus GI/GII PCR Not detected (Not detect); Plesiomonas shigelloides PCR Not detected (Not detect); Rotavirus A PCR Not detected (Not detect); Salmonella PCR Not detected (Not detect); Sapovirus PCR Not detected (Not detect); Shig/EnteroinvasiveE coli EIEC Not detected (Not detect); Shigalike tox-prod E coli STEC Not detected (Not detect); Vibrio PCR Not detected (Not detect); Vibrio cholerae PCR Not detected (Not detect); Yersinia enterocolitica PCR Not detected (Not detect)
[2019-07-06] MEDS: traZODone 50 MG TABLET PO SCH (21:58)
[2019-07-07 06:01] LABS: BUN/Creatinine Ratio 13 (6-26); Blood Urea Nitrogen 10 mg/dL (8-23); Calcium 9.3 mg/dL (8.6-10.3); Carbon Dioxide 19 mEq/L (23-29); Chloride 108 mEq/L (98-107); Glucose 98 mg/dL (70-105); Osmolality,Calculated 289 (280-300); Potassium 3.5 mEq/L (3.5-5.1); Sodium 140 mEq/L (136-145); eGFR For African Americans > 60 (> 60); eGFR For Non-African Americans > 60 (> 60)
[2019-07-07] MEDS: *HR* Heparin 5,000 UNIT/ML VIAL SQ SCH ×2 (06:13→18:34)
--- NOTE | 2019-07-07 11:49 | Internal Med Progress Note ---
Hospitalist Progress Note - Encounter Date of Encounter: 07/07/19 Time of Encounter: 11:46 - Subjective Interval History: Patient was seen and examined at bedside today. Patient denies any acute issues and concerns at this time. She continues to have baseline tremor, and weakness. Patient continues to have sluggishness to respond and bradykinesia which is likely due to her Parkinson's disease not well controlled. Patient reports that he has been noting progressively worsening weakness and rigidity and balance difficulty for past few weeks prior to her frequent falls. Apart from this, she denies any acute issues and concerns at this time. - Exam Vitals: Temp Pulse Resp BP Pulse Ox 98.3 F 56 15 134/78 97 07/07/19 06:38 07/07/19 06:38 07/07/19 06:38 07/07/19 06:38 07/07/19 08:15 Exam: General: A & O 2 , sluggish to respond. HENNT: PERRLA. Head atraumatic and makes supple Eyes: No scleral icterus CVS S1 and S2 regular, no murmur RS: Clear to air entry bilaterally, no wheeze, no crackles Abdomen: Soft and nontender. Bowel sounds normal 4 Extremities: No cyanosis, clubbing, and edema Neurology: Cranial II-XII normal. Motor strength 3-4/5 bilaterally. Sensation intact,. baseline tremor - Assessment and Plan (1) Parkinson disease Current Visit: Yes Status: Acute Assessment and Plan: Pt presents to the emergency department with complaint of fall. Patient has a history of Parkinson's disease and dementia. Patient reports that 2 weeks prior to the arrival to the emergency department she has been noticing increasing weakness, rigidity, bradykinesia, and tremors. Patient has a physical therapy and occupational therapy evaluation done while in the hospital. Patient will need shelter facility placement. SW is on consult. Neurology change her Parkinson's medication. We will continue to follow patient for improvement. (2) Fall Current Visit: Yes Status: Acute Assessment and Plan: Likely due to uncontrolled Parkinson's disease. CT head at the presentation was negative. Neurology consulted and patient's Parkinson's disease medications were adjusted. PT and OT on consult. (3) History of dementia Current Visit: Yes Status: Acute Assessment and Plan: Continue memantine. (4) GERD (gastroesophageal reflux disease) Current Visit: Yes Status: Acute Assessment and Plan: Continue home Pepcid (5) DVT prophylaxis Current Visit: Yes Status: Acute Assessment and Plan: Subcutaneous heparin - Time Spent with Patient Total time spent is greater than 50% in coordination of care (as documented) at patient's floor/unit and/or counseling patient: 25 - 35 minutes Plan of Care Discussed with: patient Internal Medicine: Result - Labs CBC & Chem 7: 07/05/19 03:02 07/07/19 05:00 Labs: BMP 07/07/19 05:00 Sodium 140 Potassium 3.5 Chloride 108 H Carbon Dioxide 19 L BUN 10 Creatinine 0.78 Glucose 98 Calcium 9.3 Consult Discharge Plan - Plan Referrals: Alva Mahoney CNP [Advanced Practice Nurse] - (2) Fall Qualifiers: Encounter type: initial encounter Qualified Code(s): W19.XXXA - Unspecified fall, initial encounter (4) GERD (gastroesophageal reflux disease) Qualifiers: Esophagitis presence: esophagitis presence not specified Qualified Code(s): K21.9 - Gastro-esophageal reflux disease without esophagitis
[2019-07-07] MEDS: Carbidopa/Levodopa 25/100 TABLET PO SCH ×4 (12:22→21:39)
[2019-07-07] MEDS: Nystatin POWDER 30 GM BOTTLE TP SCH ×2 (12:38→21:40)
[2019-07-07] MEDS: Famotidine 20 MG TABLET PO SCH ×2 (12:39→21:39)
[2019-07-07] MEDS: Fluticasone Propionate Nasal 50 MCG/SPRAY BOTTLE NS SCH (12:39)
[2019-07-07] MEDS: traZODone 50 MG TABLET PO SCH (21:39)
[2019-07-08] MEDS: *HR* Heparin 5,000 UNIT/ML VIAL SQ SCH ×2 (05:16→16:31)
[2019-07-08] MEDS: Famotidine 20 MG TABLET PO SCH ×2 (08:15→22:14)
[2019-07-08] MEDS: Carbidopa/Levodopa 25/100 TABLET PO SCH ×4 (08:16→22:13)
[2019-07-08] MEDS: Nystatin POWDER 30 GM BOTTLE TP SCH ×2 (08:16→22:14)
[2019-07-08] MEDS: Fluticasone Propionate Nasal 50 MCG/SPRAY BOTTLE NS SCH (10:05)
--- NOTE | 2019-07-08 11:24 | Internal Med Progress Note ---
Hospitalist Progress Note - Encounter Date of Encounter: 07/08/19 Time of Encounter: 11:22 - Subjective Interval History: Patient was seen and examined today. Patient reports some weakness. Apart from this, she denies any acute issues and concerns. - Exam Vitals: Temp Pulse Resp BP Pulse Ox 98.1 F 55 16 132/78 93 07/08/19 08:57 07/08/19 08:57 07/08/19 08:57 07/08/19 08:57 07/08/19 08:59 Exam: General: A & O 2 , sluggish to respond. HENNT: PERRLA. Head atraumatic and makes supple Eyes: No scleral icterus CVS S1 and S2 regular, no murmur RS: Clear to air entry bilaterally, no wheeze, no crackles Abdomen: Soft and nontender. Bowel sounds normal 4 Extremities: No cyanosis, clubbing, and edema Neurology: Cranial II-XII normal. Motor strength 3-4/5 bilaterally. Sensation intact,. baseline tremor - Assessment and Plan (1) Parkinson disease Current Visit: Yes Status: Acute Assessment and Plan: Pt presents to the emergency department with complaint of fall. Patient has a history of Parkinson's disease and dementia. Patient reports that 2 weeks prior to the arrival to the emergency department she has been noticing increasing weakness, rigidity, bradykinesia, and tremors. Pt has been gradually recovering after adjusting the medication. Continue to monitor. Patient will likely need longterm facility on discharge. Anticipate discharge tomorrow. (2) Fall Current Visit: Yes Status: Acute Assessment and Plan: Likely due to uncontrolled Parkinson's disease. CT head at the presentation was negative. Neurology consulted and patient's Parkinson's disease medications were adjusted. PT and OT on consult. (3) History of dementia Current Visit: Yes Status: Acute Assessment and Plan: Continue memantine. (4) GERD (gastroesophageal reflux disease) Current Visit: Yes Status: Acute Assessment and Plan: Continue home Pepcid (5) DVT prophylaxis Current Visit: Yes Status: Acute Assessment and Plan: Subcutaneous heparin - Time Spent with Patient Total time spent is greater than 50% in coordination of care (as documented) at patient's floor/unit and/or counseling patient: Internal Medicine: Result - Labs CBC & Chem 7: 07/05/19 03:02 07/07/19 05:00 Consult Discharge Plan - Plan Referrals: Alva Mahoney, CLARA [Advanced Practice Nurse] - (2) Fall Qualifiers: Encounter type: initial encounter Qualified Code(s): W19.XXXA - Unspecified fall, initial encounter (4) GERD (gastroesophageal reflux disease) Qualifiers: Esophagitis presence: esophagitis presence not specified Qualified Code(s): K21.9 - Gastro-esophageal reflux disease without esophagitis
[2019-07-08] MEDS: traZODone 50 MG TABLET PO SCH (22:13)
[2019-07-09] MEDS: *HR* Heparin 5,000 UNIT/ML VIAL SQ SCH (05:02)
[2019-07-09] MEDS: Carbidopa/Levodopa 25/100 TABLET PO SCH ×2 (09:22→12:38)
[2019-07-09] MEDS: Famotidine 20 MG TABLET PO SCH (09:22)
[2019-07-09] MEDS: Fluticasone Propionate Nasal 50 MCG/SPRAY BOTTLE NS SCH (09:23)
[2019-07-09] MEDS: Nystatin POWDER 30 GM BOTTLE TP SCH (09:35)
--- NOTE | 2019-07-09 12:59 | Discharge Summary ---
- NOTES TO OUTPATIENT PROVIDER Notes to Outpatient Provider: Pt presents to the hospital with complaint of fall. Patient has a history of Parkinson disease and baseline dementia. Patient Parkinson's disease was not well controlled. Neurology consult placed patient's medication for Parkinson's disease were adjusted. Patient had a e valuation by physical therapy and occupational therapy in the hospital and they recommended snf facility placement. Patient will be discharged in stable condition to the snf facility. Date of Encounter: 07/09/19 Time of Encounter: 12:56 - Discharge Diagnosis (1) Parkinson disease Priority: Primary Status: Acute (2) Fall Priority: Secondary Status: Acute Qualifiers: Encounter type: initial encounter Qualified Code(s): W19.XXXA - Unspecified fall, initial encounter (3) History of dementia Priority: Secondary Status: Acute (4) GERD (gastroesophageal reflux disease) Priority: Secondary Status: Acute Qualifiers: Esophagitis presence: esophagitis presence not specified Qualified Code(s): K21.9 - Gastro-esophageal reflux disease without esophagitis (5) DVT prophylaxis Priority: Secondary Status: Acute Hospital course: Ms. Hernandez is a 64 year old female presented to the hospital with complaint of fall. Patient has a history of Parkinson disease and baseline dementia. Patient Parkinson's disease was not well controlled. Neurology consult placed patient's medication for Parkinson's disease were adjusted. She was taking Sinemet for her Parkinson's disease 3 times a day. Neurology advised to increase the frequency and start taking the medication 4 times a day. Patient had a evaluation by physical therapy and occupational therapy in the hospital and they recommended snf facility placement. Patient will be discharged in stable condition to the snf facility. Discharge discussed with: patient, family, nurse, social work, case management, event management consultant - Time Spent with Patient Total time spent providing and/or coordinating discharge services: 35 Time spent: Greater than 30 minutes - Discharge Medications Prescriptions: New Carbidopa/Levodopa 25/100 [Sinemet 25/100] 1 each PO QID tablet Fluticasone Propionate Nasal [Flonase] 100 mcg NS DAILY bottle Continued Cholecalciferol (D-3) [Vitamin D] 2,000 unit PO DAILY Escitalopram [Lexapro] 10 mg PO DAILY Famotidine [Pepcid] 20 mg PO BID Memantine HCl 10 mg PO BID Multivitamin [Daily Multiple Vitamin] 1 tab PO DAILY Oxybutynin [Ditropan] 5 mg PO BID Trazodone HCl 150 mg PO HS PRN PRN Reason: Sleep Vit C/E/Zn/Coppr/Lutein/Zeaxan [Preservision Areds 2 Softgel] 1 cap PO DAILY Discontinued Carbidopa/Levodopa [Carbidopa-Levodopa 25-100 Tab] 1 tab PO TID Home Medications: Cholecalciferol (D-3) [Vitamin D] 2,000 unit PO DAILY 07/04/19 [History] Escitalopram [Lexapro] 10 mg PO DAILY 07/04/19 [History] Famotidine [Pepcid] 20 mg PO BID 07/04/19 [History] Memantine HCl 10 mg PO BID 07/04/19 [History] Multivitamin [Daily Multiple Vitamin] 1 tab PO DAILY 07/04/19 [History] Oxybutynin [Ditropan] 5 mg PO BID 07/04/19 [History] Trazodone HCl 150 mg PO HS PRN 07/04/19 [History] Vit C/E/Zn/Coppr/Lutein/Zeaxan [Preservision Areds 2 Softgel] 1 cap PO DAILY 07/04/19 [History] Carbidopa/Levodopa 25/100 [Sinemet 25/100] 1 each PO QID tablet 07/09/19 [Rx] Fluticasone Propionate Nasal [Flonase] 100 mcg NS DAILY bottle 07/09/19 [Rx] Allergies/Adverse Reactions: Allergy/AdvReac Type Severity Reaction Status Date / Time Donepezil Allergy Dizziness Verified 01/04/18 14:09 Date of admission: 07/04/19 16:45 Primary care physician: PCP NONE Consults: 07/04/19 16:52 Consult to Occupational Therapy [CONS] Routine Comment: Evaluate, develop and implement POC Reason for Consult: Weakness and fall Does patient have active BEDREST order?: No Is patient medically & hemodynamically stable?: Yes Consult to Physical Therapy [CONS] Routine Comment: Evaluate, develop and implement POC Reason for Consult: Status post fall. Venous and history of Parkinson's disease Does patient have active BEDREST order?: No Is patient medically & hemodynamically stable?: Yes Consult to Rent And Housing Investigator [CONS] Routine Reason for SW Consult: Likely SNF placement on discharge 07/04/19 16:53 Consult to Neurology [CONS] Stat Consulting Provider: Neurology [facility] Reason for Consult: Status post fall with history of parkinson's disease vs dementia Call Completed: Yes 07/04/19 20:19 Consult to Nutrition [CONS] Routine Comment: Consulting Provider: NUTRITION Reason for Dietary Consult: MST Score Consult to Rent And Housing Investigator [CONS] Routine Reason for SW Consult: ECF placement Discharging clinician: Vipin Arnett - Constitutional Vitals: Temp Pulse Resp BP Pulse Ox 98.2 F 52 15 120/72 97 07/09/19 09:52 07/09/19 09:52 07/09/19 09:52 07/09/19 09:52 07/09/19 06:31 General appearance: Present: cooperative, A&O X 2, A&O X 3 Exam: General: A & O 2 , sluggish to respond. HENNT: PERRLA. Head atraumatic and makes supple Eyes: No scleral icterus CVS S1 and S2 regular, no murmur RS: Clear to air entry bilaterally, no wheeze, no crackles Abdomen: Soft and nontender. Bowel sounds normal 4 Extremities: No cyanosis, clubbing, and edema Neurology: Cranial II-XII normal. Motor strength 3-4/5 bilaterally. Sensation intact,. baseline tremor - Patient Status Disposition: Transfer SNF Condition: Good Overall status at discharge: patient is progressing back to baseline - Discharge Instructions Follow Up With: Alva Mahoney, [employer] [Advanced Practice Nurse] - - Diet and Activity Activity: increase activity as tolerated Diet: regular diet
--- NOTE | 2019-07-09 13:02 | Physician Discharge Referral ---
ExtendedCare Referral Info Transfer To: SNF Provider in Charge after Transfer: PCP - Diagnosis (1) Parkinson disease Priority: Primary Status: Acute (2) Fall Priority: Secondary Status: Acute (3) History of dementia Priority: Secondary Status: Acute (4) GERD (gastroesophageal reflux disease) Priority: Secondary Status: Acute (5) DVT prophylaxis Priority: Secondary Status: Acute Prognosis: Good Aware of Diagnosis: Patient, Family Aware of Prognosis: Patient, Family - Transfer Medications Home Medications: Cholecalciferol (D-3) [Vitamin D] 2,000 unit PO DAILY 07/04/19 [History] Escitalopram [Lexapro] 10 mg PO DAILY 07/04/19 [History] Famotidine [Pepcid] 20 mg PO BID 07/04/19 [History] Memantine HCl 10 mg PO BID 07/04/19 [History] Multivitamin [Daily Multiple Vitamin] 1 tab PO DAILY 07/04/19 [History] Oxybutynin [Ditropan] 5 mg PO BID 07/04/19 [History] Trazodone HCl 150 mg PO HS PRN 07/04/19 [History] Vit C/E/Zn/Coppr/Lutein/Zeaxan [Preservision Areds 2 Softgel] 1 cap PO DAILY 07/04/19 [History] Carbidopa/Levodopa 25/100 [Sinemet 25/100] 1 each PO QID tablet 07/09/19 [Rx] Fluticasone Propionate Nasal [Flonase] 100 mcg NS DAILY bottle 07/09/19 [Rx] Allergies/Adverse Reactions: Allergy/AdvReac Type Severity Reaction Status Date / Time Donepezil Allergy Dizziness Verified 01/04/18 14:09 - Respiratory Orders Smoking Cessation: Smoking cessation has been advised. For more information, call the [place] Tobacco Quit Line at 5-093-KMWI-NOW. - Ancillary Orders May use pressure relief devices daily prn - Mobility Orders Ambulate - Rehabiliation Orders Rehab Potential: Fair Rehab Orders: ROM Exercises, Evaluation for Physical Therapy, Evaluation for Occupational Therapy - Treatments Skin tear care topically daily PRN per policy - Diet Orders Regular CERTIFICATION: I certify that the transfer of the above named patient to an Extended Care Facility is necessary for the continuing treatment of the diagnosis listed. The above information is true and accurate reflection of patient's current condition. Confidential - Redisclosure prohibited without a patient's written consent.
[2019-07-09 14:12] VITALS: BP 107/69
== END 2019-07-09 14:51 | DRG 57 ==
LOC: 3ANU 12:49 → EMEROOARM 12:49 → SUATTDRO 16:41 → 3ANU 18:52
PROVIDERS: ADMIT Internal Medicine; ATTEND Family Medicine